=== PATIENT | male | born 1990 | race Caucasian/White ===

== ENCOUNTER 2016-10-25 19:37 | Emergency (ER) | payer SELFPAY | END 2016-10-25 23:20 | disposition home or self-care (01) | LOC: FER 19:37 | DX: M62.838 Other muscle spasm (principal); M54.5 Low back pain; F17.210 Nicotine dependence, cigarettes, uncomplicated | CPT/HCPCS: 99283; J1100 ==

== ENCOUNTER 2017-02-14 07:31 | Emergency (ER) | payer OTHER | END 2017-02-14 09:16 | disposition home or self-care (01) | LOC: FER 07:31 | DX: S46.012A Strain of muscle(s) and tendon(s) of the rotator cuff of left shoulder, initial encounter (principal); F17.200 Nicotine dependence, unspecified, uncomplicated | CPT/HCPCS: 73030; 99283 ==